=== PATIENT | male | born 1955 | race Caucasian/White ===

== ENCOUNTER 2016-07-17 07:26 | Outpatient (CLI) | payer BC ==
[~2016-07-17] VITALS: Ht 180.3 cm; Wt 143.2 kg
--- NOTE | ~2016-07-17 | OP ---
PATIENT NAME: STEPH TERRELL MEDICAL RECORD: [id number] :57 LOCATION:D.CAT ADMISSION DATE: SURGEON: AMARILIS ROJAS MD DATE OF OPERATION: 07/17/2016 PROCEDURES: 1. PTCA stent LAD. 2. Left heart catheterization. 3. Selective coronary angiography. 4. Intravascular ultrasound. 5. Left ventriculogram. INDICATIONS: Angina and coronary artery disease. PROCEDURE IN DETAIL: After informed consent was obtained and after a detailed explanation of risks, benefits as well as alternative therapies, the patient elected to proceed with angiogram and angioplasty. The right radial area was prepped and draped in normal sterile fashion. The right radial artery was cannulated via modified Seldinger technique with placement of 6-Cameroonian sheath. All catheters exchanged through this sheath. FINDINGS: Left ventriculogram was performed in standard 30-degree SCHULTE view, reveals good cardiac wall motion throughout all segments. Overall ejection fraction is 60%. SELECTIVE CORONARY ANGIOGRAPHY: 1. Left main is with no significant angiographic disease. 2. Left anterior descending has greater than 80% stenosis proximally confirmed by intravascular ultrasound. 3. Left circumflex has mild irregularities, but no flow-limiting stenosis. 4. Right coronary has significant disease proximally as well as 80+ percent stenosis of the PDA. PTCA STENT OF THE LAD: The stent used was a 3.0 x 30 mm Integrity. Result was 0% residual stenosis. OVERALL IMPRESSION: Successful percutaneous transluminal coronary angioplasty stent of the left anterior descending going from 80% initial stenosis to 0% residual. PLAN: PTCA stent of the RCA in the near future. TRANSINT:[id number] Voice Confirmation ID: [id number] DOCUMENT ID: [id number] AMARILIS ROJAS MD CC: [id number] DICTATION DATE: 07/17/16 1031 CASUALTY INSURANCE CLAIM ADJUSTER: 07/17/16 1508 DEP CLI 07/17/16 [place] [id number]
--- NOTE | ~2016-07-17 | HEMODYNAMI ---
PATIENT:STEPH TERRELL MEDICAL RECORD: [id number] : 57 LOCATION:D.CAT ADMISSION DATE: 07/17/16 Generatedon:07/17/201610:31 Patient name: STEPH TERRELL Patient #: [id number] : 1955 Date of study: 07/17/2016 Page: Of Hemodynamic Procedure Report Patient Data Patient Demographics Procedure consent was obtained First Name: STEPH Gender: Male Last Name: NIDHI : 1955 [facility] Initial: NAE Age: 61 year(s) Patient #: [id number] Race: SSN: [id number] Additional ID: [id number] Contact details Address: [address] [place] [address] [address] State: [place] City: [place] Zip code: [address] Past Medical History Allergies Allergen Reaction Date Comments Reported Other allergy 07/17/2016 Lipitor Admission Admission Data Admission Date: 07/17/2016 Admission Time: 7:26 Arrival Date: 07/17/2016 Arrival Time: 9:30 Admit Source: Other Insurance Payor: Private health insurance Height (in.): 71 BSA: 2.59 (m2) Height (cm.): 180.34 BMI: 45.05 (kg/m2) Weight (lbs.): 323 Weight (kg.): 146.51 Lab Results Lab Result Date: 07/17/2016 Lab Result Time: 0:00 Biochemistry Name Units Result Min Max BUN mg/dl 24 --(----)-* 7 18 Creatinine mg/dl 1.5 --(----)-* 0.6 1.3 CBC Name Units Result Min Max Hemoglobin g/dl 14.1 --(*---)-- 13.5 17.5 Procedure Procedure Types Cath Procedure Diagnostic Procedure LHC LH w/Coronaries PCI Procedure Coronary Stent Initial Miscellaneous Procedures Moderate Sedation up to 30 minutes Procedure Description Procedure Date Procedure Date: 07/17/2016 Procedure Start Time: 10:11 Procedure End Time: 10:29 Procedure Staff Name Function Frank Ralph MD Performing Physician Nhung Alanis RT Scrub Alisha Reilly RN Nurse Radha Chaparro RT Monitor Procedure Data Cath Procedure Fluoroscopy Diagnostic fluoroscopy Total fluoroscopy Time: 5.6 time: 5.6 min min Diagnostic fluoroscopy Total fluoroscopy dose: dose: 1341 mGy 1341 mGy Contrast Material Contrast Material Type Amount (ml) Isovue 370 95 Entry Location Entry Primary Successful Side Size Upsize Upsize Entry Closure [place] ccessful Closure Location (Fr) 1 (Fr) 2 (Fr) Remarks Device Remarks Radial Right 6 Fr Mechanical artery Short Compression Estimated blood loss: 5 ml Diagnostic catheters Device Type Used For End Catheter Placement Terumo Optitorque 5Fr Multi-vessel [place] 4.5 catheter Angiography Procedure Complications No complications Procedure Medications Medication Administration Route Dosage Oxygen NC 2 l/min Lidocaine 2% added to field 20 Heparin Flush Bag added to field 2 bags (1000units/500ml NS) 0.9% NaCl I.V. 100 ml/hr Benadryl I.V. 50 mg Radial Cocktail added to field 1 syringe (Verapomil 2mg/Nitro 400mcg/Heparin 1500units) Versed I.V. 1 mg Fentanyl I.V. 50 mcg Versed I.V. 1 mg Fentanyl I.V. 50 mcg Radial Cocktail I.A. 1 syringe (Verapomil 2mg/Nitro 400mcg/Heparin 1500units) Versed I.V. 1 mg Fentanyl I.V. 50 mcg Heparin Bolus I.V. 4000 units Integrilin (Bolus I.V. 11.3 ml 2mg/ml) Plavix P.O. 600 mg Hemodynamics Rest BSA: 2.59 (m2) HGB: 14.1 (g/dl) O2 Consumption: Estimated: 283.48 (ml/min) O2 Co nsumption indexed: Estimated:109.45 (ml/min/m) Heart Rate: 49 (bpm) Pressure Samples Time Site Value (mmHg) Purpose Heart Use Rate(bpm) 10:14 LV 62/1,2 Snapshot 63 Snapshots Pre Cath Intra NCS Post Cath Vital Signs Time Heart Resp SPO2 etCO2 FO2jpbl NIBP (mmHg) Rhythm Pain Sedation Rate (ipm) (%) (mmHg) (mmHg) Status Level (bpm) 9:53:44 48 15 100 0 0 Measuring NSR 0 (11) 10(A) , No pain 9:54:02 49 16 100 0 0 173/79(161) NSR 0 (11) 10(A) , No pain 9:58:18 48 19 100 0 0 157/84(134) NSR 0 (11) 10(A) , No pain 10:03:17 50 17 97 0 0 Measuring NSR 0 (11) 10(A) , No pain 10:03:35 50 16 98 0 0 144/76(113) NSR 0 (11) 10(A) , No pain 10:07:52 52 19 94 0 0 130/75(95) NSR 0 (11) 10(A) , No pain 10:12:06 48 18 95 0 0 108/64(102) NSR 0 (11) 10(A) , No pain 10:16:19 55 16 95 0 0 102/61(85) NSR 0 (11) 9(A) , No pain 10:20:32 53 16 95 0 0 108/55(77) NSR 0 (11) 9(A) , No pain 10:24:45 55 16 96 0 0 109/58(79) NSR 0 (11) 9(A) , No pain 10:28:57 53 17 96 0 0 114/67(95) NSR 0 (11) 10(A) , No pain Medications Time Medication Route Dose Verified Delivered Reason Note s Effectiveness by by 9:57:48 Oxygen NC 2 l/min Frank Buffie used for Loree Reilly RN procedure 9:57:59 Lidocaine 2% added 20ml Frank Marie for local to vial Loree Ralph MD anesthetic field 9:58:04 Heparin Flush added 2 bags Frank Marie used for Bag to Loree Ralph MD procedure (1000units/500ml field NS) 9:58:18 0.9% NaCl I.V. 100 Frankgreg Brito Per physician ml/hr Loree Reilly RN 9:58:33 Benadryl I.V. 50 mg Frank Brito Per physician Loree Reilly RN 10:07:55 Radial Cocktail added 1 Frank Marie (Verapomil to syringe Loree Ralph MD 2mg/Nitro field 400mcg/Heparin 1500units) 10:10:01 Versed I.V. 1 mg Frank Brito for sedation Loree Reilly RN 10:10:07 Fentanyl I.V. 50 mcg Frank Brito for sedation Loree Reilly RN 10:13:33 Versed I.V. 1 mg Frank Brito for sedation Loree Reilly RN 10:13:37 Fentanyl I.V. 50 mcg Frank Brito for sedation Loree Reilly RN 10:13:48 Radial Cocktail I.A. 1 Frank Marie for (Verapomil syringe Loree Ralph MD vasodilation 2mg/Nitro 400mcg/Heparin 1500units) 10:17:49 Versed I.V. 1 mg Frank Marie for sedation Loree Ralph MD 10:17:54 Fentanyl I.V. 50 mcg Frank Marie for sedation Loree Ralph MD 10:20:03 Heparin Bolus I.V. 4000 Frank Brito for veri fied units Loree Reilly RN anticoagulation with dr ralph 10:22:03 Integrilin I.V. 11.3 ml Frank Brito for wast ed (Bolus 2mg/ml) Loree Reilly RN antiplatelet 8.7 ml therapy of vial 10:30:21 Plavix P.O. 600 mg Frank Brito for Loree Reilly RN antiplatelet therapy Procedure Log Time Note 9:35:23 Informed consent obtained and on chart 9:37:18 Admit Source: Other 9:37:26 Arrival Date: 07/17/2016 9:30:00 AM 9:37:32 Insurance Payor : Private health insurance 9:37:43 Patient Height : 71 cm 9:37:47 Patient Weight : 323 kg 9:40:12 Lab Result : Creatinine 1.5 mg/dl 9:40:12 Lab Result : BUN 24 mg/dl 9:40:12 Lab Result : Hemoglobin 14.1 g/dl 9:40:25 Diagnostic Cath Status : Elective 9:40:55 Alisha Reilly RN sent for patient. Start room use. 9:40:56 Time tracking: Regular hours 9:41:01 Plan of Care:Hemodynamics will remain stable., Cardiac rhythm will remain stable., Comfort level will be maintained., Respiratory function will remain adequate., Patient/ family verbilizes understanding of procedure., Procedure tolerated without complication., Recovers from procedure without complications.. 9:44:41 Patient received from Pre/Post Procedure Room to CCL 1 Alert and oriented. Tansferred to table in Supine position. 9:44:42 Warm blankets applied, and leni hugger turned on for patient comfort. 9:44:42 Correct patient and procedure confirmed by team. 9:44:43 ECG and BP/O2 sat monitors applied to patient. 9:51:54 Vital chart was started 9:51:55 Baseline sample Acquired. 9:51:57 Full Disclosure recording started 9:52:12 H&P Date Dictated: 07/01/2016 Within 30 days and on chart., H&P Addendum completed by physician on day of procedure. (MUST COMPLETE FOR ALL OUTPATIENTS). 9:52:14 Pre-procedure instructions explained to patient. 9:52:16 Family in waiting room. 9:52:18 Patient NPO since Midnight. 9:52:39 Patient allergic to Other allergyLipitor 9:52:43 Is patient on blood thinner?No 9:52:47 Patient diabetic? No. 9:52:51 Snore? Yes 9:52:52 Sleep apnea? No 9:53:22 Patient pain scale 0/10 ?. 9:53:27 IV patent on arrival in left hand with 0.9% NaCl at KVO. 9:53:38 Lab results completed and on chart. 9:53:44 Right Radial & Right Groin area was prepped with chlora-prep and draped in sterile fashion 9:53:45 Alarms reviewed by R. N. 9:53:46 Sharps counted by scrub and verified by R.N. 9:53:47 Physician paged 9:57:48 Oxygen 2 l/min NC was administered by Alisha Reilly RN; used for procedure; 9:57:59 Lidocaine 2% 20ml vial added to field was administered by Frank Ralph MD; for local anesthetic; 9:58:04 Heparin Flush Bag (1000units/500ml NS) 2 bags added to field was administered by Frank Ralph MD; used for procedure; 9:58:18 0.9% NaCl 100 ml/hr I.V. was administered by Alisha Reilly RN; Per physician; 9:58:33 Benadryl 50 mg I.V. was administered by Alisha Reilly RN; Per physician; 10:07:55 Radial Cocktail (Verapomil 2mg/Nitro 400mcg/Heparin 1500units) 1 syringe added to field was administered by Frank Ralph MD; ; 10:08:57 Physician arrived 10::58 --------ALL STOP TIME OUT------ 10:08:58 Final Timeout: patient, procedure, and site verified with staff and physician. All members of the team are in agreement. 10:09:02 Right Radial & Right Groin site verified by team. 10:09:05 Physical assessment completed. ASA score P 2 - A patient with mild systemic disease as per Frank Ralph MD. 10:09:09 Sedation plan: IV Moderate Sedation Versed, Fentanyl 10::17 Use device set Radial Dx 10::18 Acist Syringe opened to sterile field. 10:09:19 Medline Cath Pack opened to sterile field. 10:09:19 Bag Decanter opened to sterile field. 10:09:19 Terumo 6Fr Slender Glidesheath opened to sterile field. 10:09:20 St Sincere 260cm J .035 wire opened to sterile field. 10:09:20 Acist Hand Control opened to sterile field. 10:09:21 Acist Manifold opened to sterile field. 10:09:21 Tegaderm 4 x 4 opened to sterile field. 10:09:21 MBrace Wrist Support opened to sterile field. 10:10:01 Versed 1 mg I.V. was administered by Alisha Reilly RN; for sedation; 10:10:07 Fentanyl 50 mcg I.V. was administered by Alisha Reilly RN; for sedation; 10:10:13 Procedure started. 10:11:54 Local anesthetic to right radial artery with Lidocaine 2% by Frank Ralph MD.INITIAL ACCESS ONLY 10:12:07 A 6 Fr Short sheath was inserted into the Right Radial artery 10:13:30 A Terumo Optitorque 5Fr [place] 4.5 catheter was advanced over the wire and used for Multi-vessel Angiography. 10:13:33 Versed 1 mg I.V. was administered by Alisha Reilly RN; for sedation; 10:13:37 Fentanyl 50 mcg I.V. was administered by Alisha Reilly RN; for sedation; 10:13:48 Radial Cocktail (Verapomil 2mg/Nitro 400mcg/Heparin 1500units) 1 syringe I.A. was administered by Frank Ralph MD; for vasodilation; 10:14:56 LV hemodynamics recorded. 10:14:58 LV gram done using SCHULTE 10:15:00 Injector settings: Ml/sec: 5, Volume: 15, 10:15:15 EF : 60 % 10:15:19 RCA angiography performed. 10:15:22 Injector settings: Ml/sec: 3, Volume: 6, 10:16:20 Merit BasixCompak Inflation Kit opened to sterile field. 10:16:20 Munson Whisper J 300cm 0.014 guide wire opened to sterile field. 10:17:49 Versed 1 mg I.V. was administered by Frank Ralph MD; for sedation; 10:17:54 Fentanyl 50 mcg I.V. was administered by Frank Ralph MD; for sedation; 10:18:02 Catheter removed. 10:18:04 Cordis 6FR XB 3.5 guide catheter opened to sterile field. 10:18:58 LCA angiography performed. 10:19:05 Injector settings: Ml/sec: 3, Volume: 6, 10:20:03 Heparin Bolus 4000 units I.V. was administered by Alisha Reilly RN; for anticoagulation; verified with dr ralph 10:20:21 Catheter removed. 10:20:54 Proceeding to intervention. 10:21:00 6 Fr xb 3.5 guide catheter was inserted over the wire 10:21:04 whisper wire advanced. 10:21:07 Wire advanced across lesion. 10:21:17 [place] IVUS Catheter opened to sterile field. 10:21:20 IVUS catheter advanced over wire. 10:22:03 Integrilin (Bolus 2mg/ml) 11.3 ml I.V. was administered by Alisha Reilly RN; for antiplatelet therapy; wasted 8.7 ml of vial 10:23:51 IVUS pass to LAD lesion performed. 10:23:55 IVUS catheter removed over wire. 10:24:52 Inflation Number: 1 A Medtronic Integrity 3.0 X 30 stent was prepped and advanced across the Prox LAD. The stent was deployed at 17 KARLA for 0:10 (min:sec). 10:26:17 Stent catheter was removed intact over wire. 10:26:17 Wire removed. 10:26:19 Guide catheter removed. 10:26:30 Terumo TR Band Large opened to sterile field. 10::43 Sheath removed intact; hemostasis achieved with Mechanical Compression to the Right Radial artery. 10::45 Procedure ended.(Physican Out) 10::27 Fluoroscopy time 05.60 minutes. 10::33 Flurop Dose total: 1341 10::33 Fluoroscopy dose: 1341 mGy 10::38 Contrast amount:Isovue 370 95ml. 10::42 Sharps counted by scrub and verified by R.N. 10::46 TR band inflated with 10cc of air. 10:27:48 Insertion/operative site no bleeding no hematoma. 10::53 Post right radial artery:stable 10::55 Post Procedure Pulses reassessed and unchanged 10::02 Post procedure rhythm: unchanged. 10:28:04 Estimated blood loss: 5 ml 10::06 Post procedure instruction explained to patient.Patient verbalizes understanding. 10:28:07 Patient needs reinforcement of post procedure teaching. 10:29:29 Procedure type changed to Cath procedure, Diagnostic procedure, LHC, LHC w/Coronaries, PCI procedure, Coronary Stent Initial, Miscellaneous Procedures, Moderate Sedation up to 30 minutes 10::30 Procedure and supply charges have been captured, reviewed, submitted and are correct. 10:29:35 Procedure Complication : No complications 10::37 Vital chart was stopped 10::40 Report given to Pre/Post Procedure Room. 10::43 Patient transfered to Pre/Post Procedure Room with Stretcher. 10::45 Procedure ended. 10:29:45 Full Disclosure recording stopped 10::52 ACC-PCI Only Patient was given prescriptions, or instructed by Frank Ralph MD to start/continue the following medications upon discharge: Plavix 10::55 End room use (Document Last) 10:30:21 Plavix 600 mg P.O. was administered by Alisha Reilly RN; for antiplatelet therapy; Intervention Summary Intervention Notes Time ActionType Lesion and Equipment Action# Pressure Duration Attributes Used 10:24:52 Place stent Prox LAD Medtronic 1 17 00:10 Integrity 3.0 X 30 stent Device Usage Item Name Manufacture Quantity Catalog Hospital Part Current Minimal Lot# / Number Charge Number Stock Stock Serial# Code [facility] 1 06425 [id number] 247720 [id number] 20 Syringe Medical Systems Inc Medline Cardinal 1 [id number] 44857 098599 5 Cath Pack Health Bag Microtek 1 2002S 459893 94311 168918 5 Decanter Medical Inc. Terumo 6Fr Terumo 1 [id number] 430568 754896 893666 [address] Sincere St Sincere 1 063499 396539 869699 409855 30 260cm J .035 wire Acist Hand Acist 1 61682 003938 479310 449097 5 Control Medical Systems Inc Acist Acist 1 24081 025047 351033 953809 5 Manifold Medical Systems Inc Tegaderm 4 3M 1 1626W 869575 969368 631018 5 x 4 MBrace Advanced 1 140-0250-00 433135 77113 960005 5 Wrist Vascular Support Dynamics Terumo Terumo 1 40-4937 531731 049762 830505 5 Optitorque 5Fr [place] 4.5 catheter Merit Merit 1 [id number] 014778 927853 013981 15 BasixCompak Medical Inflation Kit Munson Munson 1 [id number] 186196 375821 567959 5 Whisper J Vascular 300cm 0.014 guide wire Cordis 6FR Cardinal 1 [id number] 506630 981614 582115 2 XB 3.5 Health guide catheter [place] 1 [id number] 050433 055309 515919 8 [place] IVUS Catheter Medtronic Medtronic 1 [id number] 073000 9 [id number] Integrity 3.0 X 30 stent Terumo TR Terumo 1 [id number] 453467 401787 603575 40 Band Large Signature Audit [place] Stage Time Signature Unsigned Intra-Procedure 07/17/2016 Radha Chaparro 10:31:45 AM RT(R) Signatures Monitor : Radha Chaparro RT Signature : Date : Time : [facility] [address] [place] [address]
[~2016-07-17 07:26] MED LIST: ASPIRIN325 MG PO; COREG25 MG PO; MAGNESIUM GLUC500 M1 PO; NORVASC10 MG PO; ZESTRIL20 MG PO
[2016-07-17 07:51] VITALS: BP 168/74; Ht 180.3 cm; Wt 143.2 kg
[2016-07-17 07:57] LABS: BASOPHILS 0.3 % (0-2); EOSINOPHILS 3.6 % (0-7); HEMATOCRIT 43.3 % (42.0-54.0); HEMOGLOBIN 14.1 g/dL (13.5-17.5); IMMATURE GRANULOCYTES 0.5 % (0-5); LYMPHOCYTES 31.4 % (15-50); MCH 29.4 pg (26.0-34.0); MCHC 32.6 g/dL (31.0-37.0); MCV 90.4 fL (80.0-100.0); MONOCYTES 7.7 % (2-11); NEUTROPHILS 56.5 % (40-80); PLATELET COUNT 180 10x3/uL (130-400); RBC 4.79 10x6/uL (4.20-6.10); RDW 13.6 % (11.5-14.5); WBC 6.1 10x3/uL (4.8-10.8)
[2016-07-17] MEDS ORDERED: HYZAAR 100-25 T1 TAB PO (07:58)
[2016-07-17 08:10] LABS: ANION GAP 10.6 mmol/L (8-16); CALCIUM 8.7 mg/dL (8.5-10.1); CARBON DIOXIDE 26.7 mmol/L (21.0-32.0); CREATININE - SERUM 1.5 mg/dL (0.6-1.3); POTASSIUM - SERUM 4.3 mmol/L (3.5-5.1)
[2016-07-17] MEDS ORDERED: BAYER CHEWABLE81 MG PO (10:50)
[2016-07-17] MEDS ORDERED: PLAVIX75 MG PO (10:50)
--- NOTE | 2016-07-17 11:00 | NUR ---
1100 PT DENIES ANY C/O CHEST PAIN, VSS, NORMAL SINUS RHYTHM ON MONITOR. TR BAND CDI TO RIGHT WRIST, AREA IS FREE FROM BLEEDING OR HEMATOMA. AT BEDSIDE. PO FLUIDS SERVED.
--- NOTE | 2016-07-17 11:30 | NUR ---
1130 PT DENIES ANY C/O. VSS, RR EVEN AND UNLABORED. ИРИНА PO FLUIDS, DECLINES SANDWICH AT THIS TIME. TR BAND CDI WITH NO BLEEDING OR HEMATOMA NOTED. AT BEDSIDE, CALL LIGHT IN REACH.
--- NOTE | 2016-07-17 12:14 | NUR ---
1200 PT DENIES ANY C/O. TR BAND CDI, NO BLEEDING OR HEMATOMA NOTED. ИРИНА PO FLUIDS. VSS.
--- NOTE | 2016-07-17 13:34 | NUR ---
1330 AMBULATED TO BATHROOM TO VOID. ALL VITALS WNL. RWRIST TR BAND REMAINS C/D/I WITH NO HEMATOMA OR BLEEDING. AT BEDSIDE. DENIES NEEDS AT THIS TIME.
--- NOTE | 2016-07-17 14:21 | NUR ---
3CC AIR REMOVED FROM R WRIST TR BAND. WILL MONITOR CLOSELY FOR BLEEDING OR HEMATOMA. UP TO BEDSIDE TO DRESS.
--- NOTE | 2016-07-17 14:42 | NUR ---
REMAINDER OF AIR REMOVED FROM R WRIST TR BAND. TEGADERM AND COTTON BALL APPLIED. BRACE REMAINS IN PLACE ON DISCHARGE. D/C INSTRUCTIONS DISCUSSED WITH PATIENT AND AT BEDSIDE. INSTRUCTIONS FOR PATIENT RETURN DISCUSSED. PATIENT TO RETURN WEDNESDAY AT 7[address] FOR PCI RCA WITH DR. ROJAS. WHEELED OUT VIA WHEELCHAIR BY CATH TEAM.
== END 2016-07-17 14:45 | disposition home or self-care (01) ==
LOC: D.CATH 07:26
PROVIDERS: Internal Medicine Interventional Cardiology
DX: I25.119 Atherosclerotic heart disease of native coronary artery with unspecified angina pectoris (principal)

== ENCOUNTER 2016-07-20 07:16 | Outpatient (CLI) | payer BC ==
[~2016-07-20] VITALS: Ht 180.3 cm; Wt 143.2 kg
--- NOTE | ~2016-07-20 | HEMODYNAMI ---
PATIENT:STEPH TERRELL MEDICAL RECORD: [id number] : 57 LOCATION:D.CAT ADMISSION DATE: 07/20/16 Generatedon:07/20/20169:31 Patient name: STEPH TERRELL Patient #: [id number] : 1955 Date of study: 07/20/2016 Page: Of Hemodynamic Procedure Report Patient Data Patient Demographics Procedure consent was obtained First Name: STEPH Gender: Male Last Name: NIDHI : 1955 [facility] Initial: ETHAN Age: 61 year(s) Patient #: [id number] Race: SSN: [id number] Additional ID: [id number] Contact details Address: [address] [place] [address] [address] State: [place] City: [place] Zip code: [address] Past Medical History Allergies Allergen Reaction Date Comments Reported Other allergy 07/17/2016 Lipitor Other [facility] Admission Admission Data Admission Date: 07/20/2016 Admission Time: 7:16 Lab Results Lab Result Date: 07/20/2016 Lab Result Time: 6:40 Biochemistry Name Units Result Min Max BUN mg/dl 29 --(----)-* 7 18 Creatinine mg/dl 1.5 --(----)-* 0.6 1.3 CBC Name Units Result Min Max Hematocrit % 44.7 --(*---)-- 42 54 Hemoglobin g/dl 14.5 --(*---)-- 13.5 17.5 Procedure Procedure Types Cath Procedure Diagnostic Procedure LHC PCI Procedure Coronary Stent Initial Coronary Stent Additional Miscellaneous Procedures Moderate Sedation up to 15 minutes Procedure Description Procedure Date Procedure Date: 07/20/2016 Procedure Start Time: 9:10 Procedure End Time: 9:25 Procedure Staff Name Function Frank Ralph MD Performing Physician Crispin Valladares RT Scrub Silvia Richey RN Nurse Tanvir Elias RT Monitor Procedure Data Cath Procedure Fluoroscopy Diagnostic fluoroscopy Total fluoroscopy Time: 4.3 time: 4.3 min min Diagnostic fluoroscopy Total fluoroscopy dose: 517 dose: 517 mGy mGy Contrast Material Contrast Material Type Amount (ml) Isovue 300 91 Entry Location Entry Primary Successful Side Size Upsize Upsize Entry Closure [place] ccessful Closure Location (Fr) 1 (Fr) 2 (Fr) Remarks Device Remarks Radial Right 6 Fr Mechanical artery Short Compression Procedure Complications No complications Procedure Medications Medication Administration Route Dosage Oxygen NC 2 l/min Heparin Flush Bag added to field 2 bags (1000units/500ml NS) Lidocaine 2% added to field 20 Radial Cocktail added to field 1 syringe (Verapomil 2mg/Nitro 400mcg/Heparin 1500units) Heparin Bolus I.V. 4000 units Radial Cocktail I.A. 1 syringe (Verapomil 2mg/Nitro 400mcg/Heparin 1500units) Versed I.V. 1 mg Fentanyl I.V. 50 mcg Versed I.V. 1 mg Fentanyl I.V. 50 mcg Fentanyl I.V. 50 mcg 0.9% NaCl I.V. bolus 250 ml Hemodynamics Rest HGB: 14.5 (g/dl) Heart Rate: 56 (bpm) Snapshots Pre Cath Intra NCS Post Cath Vital Signs Time Heart Resp SPO2 etCO2 [id number] NIBP (mmHg) Rhythm Pain Sedation Rate (ipm) (%) (mmHg) (mmHg) Status Level (bpm) 8:55:57 49 16 99 0 0 157/69(135) NSR 0 (11) 10(A) , No pain 9:00:21 52 12 99 0 0 153/73(125) NSR 0 (11) 10(A) , No pain 9:04:51 53 12 99 0 0 145/70(130) NSR 0 (11) 10(A) , No pain 9:09:07 55 13 98 0 0 124/57(96) NSR 0 (11) 10(A) , No pain 9:13:21 57 16 97 0 0 91/51(78) NSR 0 (11) 9(A) , No pain 9:17:37 65 17 95 0 0 69/44(60) NSR 0 (11) 9(A) , No pain 9:21:39 64 16 95 0 0 82/57(75) NSR 0 (11) 9(A) , No pain 9:24:17 59 16 95 0 0 99/58(91) NSR 0 (11) 9(A) , No pain Medications Time Medication Route Dose Verified Delivered Reason Notes Effectiveness by by 9:05:33 Oxygen NC 2 l/min Frank Silvia Per physician Loree Richey RN 9:05:41 Heparin Flush added 2 bags Frank Marie used for Bag to Loree Ralph MD procedure (1000units/500ml field NS) 9:05:49 Lidocaine 2% added 20ml Frank Marie used for to vial Loree Ralph MD procedure field 9:05:55 Radial Cocktail added 1 Frank Marie used for (Verapomil to syringe Loree Ralph MD procedure 2mg/Nitro field 400mcg/Heparin 1500units) 9:09:43 Versed I.V. 1 mg Frank Silvia for sedation Loree Richey RN 9:09:53 Fentanyl I.V. 50 mcg Frank Silvia for sedation Loree Richey RN 9:10:45 Radial Cocktail I.A. 1 Frank Frank for (Verapomil syringe Loree Ralph MD vasodilation 2mg/Nitro 400mcg/Heparin 1500units) 9:11:08 Versed I.V. 1 mg Frank Silvia for sedation Loree Richey RN 9:11:16 Fentanyl I.V. 50 mcg Frank Silvia for sedation Loree Richey RN 9:11:51 Heparin Bolus I.V. 4000 Frank Silvia for dose units Loree Richey RN anticoagulation verified wt dr ralph 9:13:21 Fentanyl I.V. 50 mcg Frank Silvia for sedation Loree Richey RN 9:17:45 0.9% NaCl I.V. 250 ml Frank Silvia Per physician dr roldan Richey RN informed of BP Procedure Log Time Note 8:33:36 Informed consent obtained and on chart 8:34:02 Diagnostic Cath status Elective 8:34:04 Silvia Richey RN sent for patient. Start room use. 8:34:06 Time tracking: Regular hours 8:34:10 Plan of Care:Hemodynamics will remain stable., Cardiac rhythm will remain stable., Comfort level will be maintained., Respiratory function will remain adequate., Patient/ family verbilizes understanding of procedure., Procedure tolerated without complication., Recovers from procedure without complications.. 8:37:10 Lab Result : Hemoglobin 14.5 g/dl 8:37:10 Lab Result : Creatinine 1.5 mg/dl 8:37:10 Lab Result : BUN 29 mg/dl 8:37:10 Lab Result : Hematocrit 44.7 % 8:37:20 Lab results completed and on chart. 8:50:47 Patient received from Pre/Post Procedure Room to CCL 1 Alert and oriented. Tansferred to table in Supine position. 8:50:49 Warm blankets applied, and leni hugger turned on for patient comfort. 8:50:50 Correct patient and procedure confirmed by team. 8:50:50 ECG and BP/O2 sat monitors applied to patient. 8:54:33 Vital chart was started 9:03:17 Baseline sample Acquired. 9:03:20 Rhythm: sinus rhythm 9:04:05 H&P Date Dictated: 07/01/2016 Within 30 days and on chart., H&P Addendum completed by physician on day of procedure. (MUST COMPLETE FOR ALL OUTPATIENTS). 9:04:06 Pre-procedure instructions explained to patient. 9:04:06 Pre-op teaching completed and patient verbalized understanding. 9:04:08 Family in waiting room. 9:04:09 Patient NPO since Midnight. 9:05:23 Patient allergic to Other allergyatovvastatin 9:05:26 Is the patient allergic to Iodine/contrast media? No. 9:05:33 Oxygen 2 l/min NC was administered by Silvia Richey RN; Per physician; 9:05:41 Heparin Flush Bag (1000units/500ml NS) 2 bags added to field was administered by Frank Ralph MD; used for procedure; 9:05:43 Is patient on blood thinner?Yes 9:05:46 ACC The patient was administered the following blood thiners within the last 24 hours: ACCPlavix 9:05:48 Patient diabetic? No. 9:05:49 Lidocaine 2% 20ml vial added to field was administered by Frank Ralph MD; used for procedure; 9:05:50 ----Pre-sedation anethsthesia assessment.---- 9:05:52 Previous problem with sedation/anesthesia? No ? 9:05:54 Snore? Yes 9:05:55 Radial Cocktail (Verapomil 2mg/Nitro 400mcg/Heparin 1500units) 1 syringe added to field was administered by Frank Ralph MD; used for procedure; 9:05:55 Sleep apnea? No 9:05:57 Deviated septum? No 9:05:58 Opens mouth fully? Yes 9:06:00 Sticks out tongue? Yes 9:06:02 Airway obstruction? No ? 9:06:04 Dentures? No ? 9:06:11 Pre procedure: right dorsailis pedis pulse 1+ Palpable, but thready & weak; easily obliterated 9:09:12 Modified Ethan's test Ulnar > 7 seconds. 9:09:15 Patient pain scale 0/10 ?. 9:09:19 IV patent on arrival in left antecubital with 0.9% NaCl at 10ml/hr. 9:09:24 Right Radial & Right Groin area was prepped with chlora-prep and draped in sterile fashion 9:09:25 Alarms reviewed by R. N. 9:09:26 Sharps counted by scrub and verified by R.N. 9:09:27 --------ALL STOP TIME OUT------ 9:09:27 Final Timeout: patient, procedure, and site verified with staff and physician. All members of the team are in agreement. 9:09:29 Right Radial & Right Groin site verified by team. 9:09:33 Physical assessment completed. ASA score P 2 - A patient with mild systemic disease as per Frank Ralph MD. 9:09:36 Sedation plan: IV Moderate Sedation Versed, Fentanyl 9:09:43 Versed 1 mg I.V. was administered by Silvia Richey RN; for sedation; 9:09:45 Use device set Radial PCI 9:09:46 Acist Syringe opened to sterile field. 9:09:46 Acist Hand Control opened to sterile field. 9:09:47 Bag Decanter opened to sterile field. 9:09:47 Medline Cath Pack opened to sterile field. 9:09:47 Merit BasixCompak Inflation Kit opened to sterile field. 9:09:48 Terumo 6Fr Slender Glidesheath opened to sterile field. 9:09:48 Acist Manifold opened to sterile field. 9:09:48 Tegaderm 4 x 4 opened to sterile field. 9:09:49 MBrace Wrist Support opened to sterile field. 9:09:49 St Sincere 260cm J .035 wire opened to sterile field. 9:09:53 Fentanyl 50 mcg I.V. was administered by Silvia Richey RN; for sedation; 9:10:00 Munson Whisper J 300cm 0.014 guide wire opened to sterile field. 9:10:01 Medtronic Launcher 6Fr AR 2.0 guide catheter opened to sterile field. 9:10:04 Procedure started. 9::04 Full Disclosure recording started 9:10:22 Local anesthetic to right radial artery with Lidocaine 2% by Frank Ralph MD.INITIAL ACCESS ONLY 9:10:29 A 6 Fr Short sheath was inserted into the Right Radial artery 9:10:38 6 Fr AR 2 guide catheter was inserted over the wire 9:10:45 Radial Cocktail (Verapomil 2mg/Nitro 400mcg/Heparin 1500units) 1 syringe I.A. was administered by Frank Ralph MD; for vasodilation; 9:11:08 Versed 1 mg I.V. was administered by Silvia Richey RN; for sedation; 9:11:16 Fentanyl 50 mcg I.V. was administered by Silvia Richey RN; for sedation; 9:11:43 Zero performed for pressure channel P1 9:11:51 Heparin Bolus 4000 units I.V. was administered by Silvia Richey RN; for anticoagulation; dose verified wtih dr ralph 9:12:57 WHISPER wire advanced. 9:13:21 Fentanyl 50 mcg I.V. was administered by Silvia Richey RN; for sedation; 9:15:00 Inflation Number: 1 A Medtronic Resolute 2.5 X 30 stent was prepped and advanced across the R PDA. The stent was deployed at 11 KARLA for 0:11 (min:sec). 9:16:08 Stent catheter was removed intact over wire. 9:17:45 0.9% NaCl 250 ml I.V. bolus was administered by Silvia Richey RN; Per physician; informed of BP 9:17:57 Inflation Number: 1 A Medtronic Resolute 3.5 X 18 stent was prepped and advanced across the Prox RCA. The stent was deployed at 13 KARLA for 0:10 (min:sec). 9:18:03 Stent catheter was removed intact over wire. 9:19:53 Inflation Number: 1 A Medtronic Resolute 3.5 X 22 stent was prepped and advanced across the Mid RCA. The stent was deployed at 15 KARLA for 0:11 (min:sec). 9:19:56 Stent catheter was removed intact over wire. 9:19:57 Wire removed. 9:19:57 Guide catheter removed. 9:20:05 Contrast amount:Isovue 300 91ml. 9:20:12 Sheath removed intact; hemostasis achieved with Mechanical Compression to the Right Radial artery. 9:20:50 Procedure ended.(Physican Out) 9:21:08 Fluoroscopy time 04.30 minutes. 9:21:17 Flurop Dose total: 517 9:21:17 Fluoroscopy dose: 517 mGy 9:21:18 Sharps counted by scrub and verified by R.N. 9:21:20 TR band inflated with 10cc of air. 9:21:28 Terumo TR Band Standard opened to sterile field. 9:21:50 Procedure type changed to Cath procedure, Diagnostic procedure, LHC, PCI procedure, Coronary Stent Initial, Coronary Stent Additional, Miscellaneous Procedures, Moderate Sedation up to 15 minutes 9:24:36 Post right radial artery:stable 9:24:37 Post Procedure Pulses reassessed and unchanged 9:24:41 Post procedure rhythm: sinus rhythm 9:24:43 Procedure and supply charges have been captured, reviewed, submitted and are correct. 9:25:03 Procedure Complication : No complications 9:25:06 Vital chart was stopped 9:25:06 See physician's report for complete and final results. 9:25:09 Report given to Pre/Post Procedure Room. 9:25:13 Patient transfered to Pre/Post Procedure Room with Stretcher. 9:25:16 Procedure ended. 9:25:16 Full Disclosure recording stopped 9:25:20 End room use (Document Last) Intervention Summary Intervention Notes Time ActionType Lesion and Equipment Action# Pressure Duration Attributes Used 9:15:00 Place stent R PDA Medtronic 1 11 00:11 Resolute 2.5 X 30 stent 9:17:57 Place stent Prox RCA Medtronic 1 13 00:10 Resolute 3.5 X 18 stent 9:19:53 Place stent Mid RCA Medtronic 1 15 00:11 Resolute 3.5 X 22 stent Device Usage Item Name Manufacture Quantity Catalog Hospital Part Current Minimal Lot# / Number Charge Number Stock Stock Serial# Code Acist Acist 1 97814 153617 547880 [id number] 20 Syringe Medical Systems Inc Acist Hand Acist 1 48815 889231 894815 294476 5 Control Medical Systems Inc Bag Microtek 1 2002S 666299 32216 081327 5 DecStrangeloop Networks Medical Inc. Medline Cardinal 1 [id number] 322625 30042 598091 5 Guojia New Materials [facility] 1 [id number] 076693 036408 846000 15 CurbStand Medical Inflation Kit Terumo 6Fr Terumo 1 [id number] 766703 547934 605939 40 Slender Glidesheath Acist Acist 1 26655 999349 314009 249288 5 Manifold Medical Systems Inc Tegaderm 4 3M 1 [id number] 413892 122460 526343 5 x 4 MBrace Advanced 1 [id number] 609565 44724 669034 5 [address] V[address] Support Dynamics St Sincere St Sincere 1 096031 039617 435372 880809 30 260cm J .035 wire Munson Munson 1 [id number] 523459 081358 616548 5 Whisper J Vascular 300cm 0.014 guide wire Medtronic Medtronic 1 [id number] 604506 87968 909074 1 Launcher 6Fr AR 2.0 guide catheter Medtronic Medtronic 1 [id number] 094063 086510 1 [id number] Resolute 2.5 X 30 stent Medtronic Medtronic 1 [id number] 274604 932536 9 [id number] Resolute 3.5 X 18 stent Medtronic Medtronic 1 [id number] 370210 522526 6 [id number] Resolute 3.5 X 22 stent Terumo TR Terumo 1 [id number] 267867 075499 691821 40 Band Standard Signature Audit Aspen Stage Time Signature Unsigned Intra-Procedure 07/20/2016 Tanvir Elias 9:31:45 AM RT(R) Signatures Monitor : Tanvir Elias RT Signature : Date : Time : [place] [address] [place] [address]
[~2016-07-20 07:16] MED LIST changes: +BAYER CHEWABLE81 MG PO; +HYZAAR 100-25 T1 TAB PO; +PLAVIX75 MG PO
[2016-07-20 07:30] VITALS: BP 159/81; Ht 180.3 cm; Wt 143.2 kg
[2016-07-20 07:45] LABS: BASOPHILS 0.3 % (0-2); EOSINOPHILS 3.2 % (0-7); HEMATOCRIT 44.7 % (42.0-54.0); HEMOGLOBIN 14.5 g/dL (13.5-17.5); IMMATURE GRANULOCYTES 0.2 % (0-5); LYMPHOCYTES 26.5 % (15-50); MCH 29.5 pg (26.0-34.0); MCHC 32.4 g/dL (31.0-37.0); MEAN PLATELET VOLUME 10.1 fL (7.4-10.4); MONOCYTES 7.5 % (2-11); NEUTROPHILS 62.3 % (40-80); PLATELET COUNT 175 10x3/uL (130-400); RBC 4.91 10x6/uL (4.20-6.10); RDW 13.7 % (11.5-14.5); WBC 6.5 10x3/uL (4.8-10.8)
[2016-07-20 08:03] LABS: ANION GAP 11.6 mmol/L (8-16); CALCIUM 9.1 mg/dL (8.5-10.1); CREATININE - SERUM 1.5 mg/dL (0.6-1.3); POTASSIUM - SERUM 4.6 mmol/L (3.5-5.1)
--- NOTE | 2016-07-20 10:16 | NUR ---
0955 RESTING WITH EYES CLOSED. HOB ELEVATED. NO RESP DISTRESS, ROOM AIR. SB RATE 51 W NO C/O CHEST PAIN. PULSES PALP X 4. R WRIST TR BAND C/D/I WITH NO HEMATOMA OR BLEEDING. AT BEDSIDE. DENIES NEEDS AT THIS TIME.
--- NOTE | 2016-07-20 13:01 | NUR ---
1040 SLEEPING, ROOM AIR W NO RESP DISTRESS. SB RATE 53 WNO C/O CHEST PAIN. PULSES PALP X 4. R WRIST TR BAND C/D/I WITH NO HEMATOMA OR BLEEDING. 1140 TALKING WITH AT BEDSIDE. R WRIST TR BAND C/D/I W NO HEMATOMA OR BLEEDING. DENIES NEEDS AT THIS TIME. SIPPING WATER WITH NO NAUSEA. 1240 SITTING UP IN BED, ROOM AIR, VITALS WNL. 1304 3CC AIR REMOVED FROM R WRIST TR BAND. WILL MONITOR CLOSELY FOR BLEEDING.
--- NOTE | 2016-07-20 13:09 | NUR ---
AMBULATED TO BATHROOM TO VOID, R WRIST REMAINS C/D/I WITH NO HEMATOMA OR BLEEDING.
--- NOTE | 2016-07-21 18:08 | OP ---
PATIENT NAME: STEPH TERRELL MEDICAL RECORD: [id number] :57 LOCATION:D.CAT ADMISSION DATE: SURGEON: AMARILIS ROJAS MD DATE OF OPERATION: 07/20/2016 PROCEDURES: 1. PTCA stent RCA. 2. PTCA stent RCA PDA. 3. Selective coronary angiography. INDICATION: Angina and coronary artery disease. PROCEDURE: After informed consent was obtained and after detailed explanation of risks, benefits as well as alternative therapies, the patient elected to proceed with angiogram and angioplasty. The right radial area was prepped and draped in normal sterile fashion. Right radial artery was cannulated via modified Seldinger technique with placement of 6-Maldivian sheath. All catheters exchanged through this sheath. FINDINGS: There are multiple areas of stenosis in the RCA greater than 70% to 80%, PDA is 90%. PDA was addressed with a 2.5 x 30 mm Resolute, the RCA with a 3.5 x 22 and 3.5 x 18 mm Resolute. Result was 0% residual stenosis. OVERALL IMPRESSION: Successful percutaneous transluminal coronary angioplasty stent of the right coronary artery going from 90% initial stenosis to 0% residual. TRANSINT:[id number] Voice Confirmation ID: [id number] DOCUMENT ID: [id number] AMARILIS ROJAS MD at 1808 CC: [id number] DICTATION DATE: 07/20/16924 JOURNEYMAN POWERHOUSE OPERATOR: 07/20/16 1310 DEP CLI 07/20/16 [place] [id number]
== END 2016-07-20 13:31 | disposition home or self-care (01) ==
LOC: D.CATH 07:16
PROVIDERS: Internal Medicine Interventional Cardiology
DX: I25.10 Atherosclerotic heart disease of native coronary artery without angina pectoris (principal); Z01.812 Encounter for preprocedural laboratory examination

== ENCOUNTER 2017-05-26 07:39 | Outpatient (CLI) | payer BC ==
[~2017-05-26] VITALS: Ht 180.3 cm; Wt 138.6 kg
--- NOTE | ~2017-05-26 | OP ---
PATIENT NAME: STEPH TERRELL MEDICAL RECORD: [id number] :57 LOCATION:D.CAT ADMISSION DATE: SURGEON: AMARILIS ROJAS MD DATE OF OPERATION: 05/26/2017 PROCEDURES: 1. PTCA stent LAD. 2. Intravascular ultrasound of the LAD. 3. Left heart catheterization. 4. Selective coronary angiography. 5. Left ventriculogram. INDICATION: Angina and coronary artery disease. PROCEDURE IN DETAIL: After informed consent was obtained and after detailed explanation of risks, benefits as well as alternative therapies, the patient elected to proceed with angiogram and angioplasty. The right radial area was prepped and draped in normal sterile fashion. The right radial artery was cannulated via modified Seldinger technique with placement of 6-Indian sheath. All catheters exchanged through this sheath. FINDINGS: The left ventriculogram was performed in standard 30-degree SCHULTE view, reveals good cardiac wall motion throughout all segments. Overall ejection fraction estimated at 60%. SELECTIVE CORONARY ANGIOGRAPHY: 1. Left main showed no significant angiographic disease. 2. Left anterior descending has a previously placed stent. There is 77% stenosis after the previously placed stent, confirmed by intravascular ultrasound. 3. Left circumflex has moderate irregularities, but no flow-limiting stenosis. 4. Right coronary artery has 90% stenosis in the distal aspect of the PDA. PTCA STENT OF THE LAD: The stent used was a 3.5 x 22 mm [place]. Result was 0% residual stenosis. OVERALL IMPRESSION: Successful percutaneous transluminal coronary angioplasty stent of the left anterior descending going from 75% to 80% initial stenosis to 0% residual stenosis. PLAN: PTCA stent of the RCA in the near future. TRANSINT:[id number] Voice Confirmation ID: [id number] DOCUMENT ID: [id number] AMARILIS ROJAS MD at 1056 CC: [id number] DICTATION DATE: 05/26/17 1022 FISHERY BIOLOGIST: 05/26/17 1146 [facility] CLI 05/26/[address] [id number]
--- NOTE | ~2017-05-26 | HEMODYNAMI ---
PATIENT:STEPH TERRELL MEDICAL RECORD: [id number] : 57 LOCATION:D.CAT ADMISSION DATE: 05/26/17 Generatedon:05/26/201710:25 Patient name: STEPH TERRELL Patient #: [id number] : 1955 Date of study: 05/26/2017 Page: Of Hemodynamic Procedure Report Patient Data Patient Demographics Procedure consent was obtained First Name: STEPH Gender: Male Last Name: NIDHI : 1955 [facility] Initial: NAE Age: 62 year(s) Patient #: [id number] Race: SSN: [id number] Additional ID: [id number] Contact details Address: [address] [place] [address] [address] State: [place]: [place] Zip code: [address] Past Medical History Allergies Allergen Reaction Date Comments Reported Other allergy 07/17/2016 Lipitor Other allergy 07/20/2016 [facility] Admission Admission Data Admission Date: 05/26/2017 Admission Time: 7:39 Arrival Date: 05/26/2017 Arrival Time: 10:00 Admit Source: Other Insurance Payor: Private health insurance Height (in.): 71 BSA: 2.53 (m2) Height (cm.): 180.34 BMI: 42.96 (kg/m2) Weight (lbs.): 308 Weight (kg.): 139.71 Lab Results Lab Result Date: 05/26/2017 Lab Result Time: 0:00 Biochemistry Name Units Result Min Max BUN mg/dl 24 --(----)-* 7 18 Creatinine mg/dl 1.4 --(----)*- 0.6 1.3 CBC Name Units Result Min Max Hemoglobin g/dl 14 --(*---)-- 13.5 17.5 Procedure Procedure Types Cath Procedure Diagnostic Procedure [facility] w/Coronaries FFR/IVUS Intra-Coronary IVUS Initial Sedation Charges Moderate Sedation up to 15 minutes PCI Procedure Coronary Stent Coronary Stent Initial Procedure Description Procedure Date Procedure Date: 05/26/2017 Procedure Start Time: 10:04 Procedure End Time: 10:22 Procedure Staff Name Function Frank Ralph MD Performing Physician Radha Chaparro RT Monitor Crispin Valladares RT Scrub Bartolome Crow RN Nurse Procedure Data Cath Procedure Fluoroscopy Diagnostic fluoroscopy Total fluoroscopy Time: 4.4 time: 4.4 min min Diagnostic fluoroscopy Total fluoroscopy dose: dose: 1624 mGy 1624 mGy Contrast Material Contrast Material Type Amount (ml) Isovue 300 85 Entry Location Entry Primary Successful Side Size Upsize Upsize Entry Closure [place] ccessful Closure Location (Fr) 1 (Fr) 2 (Fr) Remarks Device Remarks Radial Right 6 Fr Mechanical artery Short Compression Estimated blood loss: 5 ml Diagnostic catheters Device Type Used For End Catheter Placement DIAGNOSTIC [place] 110cm 5 Multi-vessel Fr catheter ([id number]) Angiography Procedure Complications No complications Procedure Medications Medication Administration Route Dosage 0.9% NaCl I.V. 100 ml/hr Oxygen NC 2 l/min Heparin Flush Bag added to field 2 bags (1000units/500ml NS) Lidocaine 2% added to field 20 Radial Cocktail added to field 1 syringe (Verapomil 2mg/Nitro 400mcg/Heparin 1500units) Versed I.V. 1 mg Fentanyl I.V. 50 mcg Fentanyl I.V. 50 mcg Versed I.V. 1 mg Radial Cocktail I.A. 1 syringe (Verapomil 2mg/Nitro 400mcg/Heparin 1500units) Fentanyl I.V. 50 mcg Heparin Bolus I.V. 4000 units Hemodynamics Rest BSA: 2.53 (m2) HGB: 14 (g/dl) O2 Consumption: Estimated: 280.12 (ml/min) O2 Cons umption indexed: Estimated:110.72 (ml/min/m) Heart Rate: 53 (bpm) Pressure Samples Time Site Value (mmHg) Purpose Heart Use Rate(bpm) 10:08 LV 74/31,40 Snapshot 62 Snapshots Pre Cath Intra NCS Post Cath Vital Signs Time Heart Resp SPO2 etCO2 NIBP (mmHg) Rhythm Pain Sedation Rate (ipm) (%) (mmHg) Status Level (bpm) 9:46:03 52 16 100 29.8 148/84(100) NSR 0 (11) 10(A) , No pain 9:50:31 49 19 98 23.1 133/78(101) NSR 0 (11) 10(A) , No pain 9:54:55 54 19 98 0 124/73(92) NSR 0 (11) 10(A) , No pain 9:59:24 52 10 100 46.3 125/73(93) NSR 0 (11) 10(A) , No pain 10:03:54 52 19 98 37.3 113/68(84) NSR 0 (11) 10(A) , No pain 10:08:22 58 19 99 46.2 117/61(93) NSR 0 (11) 9(A) , No pain 10:12:49 61 17 95 32.8 101/60(93) NSR 0 (11) 9(A) , No pain 10:17:13 58 16 94 43.3 111/53(69) NSR 0 (11) 9(A) , No pain 10:21:33 53 6 97 39.6 105/73(99) NSR 0 (11) 9(A) , No pain Medications Time Medication Route Dose Verified Delivered Reason Note s Effectiveness by by 9:43:56 0.9% NaCl I.V. 100 Bartolome Bartolome Per physician ml/hr Mignon Crow RN RN 9:44:06 Oxygen NC 2 l/min Bartolome Bartolome Per physician Mignon Crow RN RN 9:44:18 Heparin Flush added 2 bags Bartolome Bartolome used for Bag to Lorigan Lorigan procedure (1000units/500ml field GARCIA RN NS) 9:44:44 Lidocaine 2% added 20ml Bartolome Bartolome for local to vial Lorigan Lorigan anesthetic field GARCIA RN 9:49:41 Radial Cocktail added 1 Bartolome Bartolome used for (Verapomil to syringe Lorigan Lorigan procedure 2mg/Nitro field GARCIA RN 400mcg/Heparin 1500units) 9:57:38 Versed I.V. 1 mg Bartolome Bartolome for sedation Mignon Crow RN, RN 9:57:48 Fentanyl I.V. 50 mcg Bartolome Bartolome for sedation Mignon Crow RN RN 10:04:31 Fentanyl I.V. 50 mcg Bartolome Bartolome for sedation Mignon Crow RN RN 10:04:40 Versed I.V. 1 mg Bartolome Bartolome for sedation Mignon Crow RN, RN 10:06:43 Radial Cocktail I.A. 1 Bartolome Marie for (Verapomil syringe Mignon Ralph MD vasodilation 2mg/Nitro RN 400mcg/Heparin 1500units) 10:07:43 Fentanyl I.V. 50 mcg Bartolome Mancuso for sedation Mignon Crow RN RN 10:12:39 Heparin Bolus I.V. 4000 Bartolome Mancuso for units Mignon Crow anticoagulation RN lap layer Log Time Note 9:20:15 Crispin Valladares RT(R) sent for patient. Start room use. 9:28:38 Informed consent obtained and on chart 9:29:03 Diagnostic Cath Status : Elective 9:29:09 Admit Source: Other 9::12 Arrival Date: 05/26/2017 10:00:00 AM 9:29:20 Insurance Payor : Private health insurance 9:29:44 Patient Height : 71 inches 9:29:49 Patient Weight : 308 lbs 9:31:09 Lab Result : BUN 24 mg/dl 9:31: Lab Result : Creatinine 1.4 mg/dl 9:31: Lab Result : Hemoglobin 14 g/dl 9:31:20 Time tracking: Regular hours 9:31:25 Plan of Care:Hemodynamics will remain stable., Cardiac rhythm will remain stable., Comfort level will be maintained., Respiratory function will remain adequate., Patient/ family verbilizes understanding of procedure., Procedure tolerated without complication., Recovers from procedure without complications.. 9:35:05 Patient received from Pre/Post Procedure Room to [facility] 2 Alert and oriented. Tansferred to table in Supine position. 9:35:05 Warm blankets applied, and leni hugger turned on for patient comfort. 9:35:06 Correct patient and procedure confirmed by team. 9:35:07 ECG and BP/O2 sat monitors applied to patient. 9:43:56 0.9% NaCl 100 ml/hr I.V. was administered by Bartolome Crow RN; Per physician; 9:44:06 Oxygen 2 l/min NC was administered by Bartolome Crow RN; Per physician; 9:44:18 Heparin Flush Bag (1000units/500ml NS) 2 bags added to field was administered by Bartolome Crow RN; used for procedure; :44:23 Vital chart was started 9:44:44 Lidocaine 2% 20ml vial added to field was administered by Bartolome Crow RN; for local anesthetic; 9:49:41 Radial Cocktail (Verapomil 2mg/Nitro 400mcg/Heparin 1500units) 1 syringe added to field was administered by Bartolome Crow RN; used for procedure; 9:50:47 Baseline sample Acquired. 9:50:51 Rhythm: sinus rhythm 9:50:53 Full Disclosure recording started 9:50:59 H&P Date Dictated: 05/26/2017 Within 30 days and on chart., H&P Addendum completed by physician on day of procedure. (MUST COMPLETE FOR ALL OUTPATIENTS). 9:51:01 Pre-procedure instructions explained to patient. 9:51:01 Pre-op teaching completed and patient verbalized understanding. 9:51:03 Family in waiting room. 9:51:18 Patient NPO since Midnight. 9:51:36 Is the patient allergic to Iodine/contrast media? No. 9:51:37 Was the patient premedicated? No 9:53:19 Is patient on blood thinner?Yes 9:53:21 ACC The patient was administered the following blood thiners within the last 24 hours: ACCPlavix 9:53:23 Patient diabetic? No. 9:53:26 Previous problem with sedation/anesthesia? No ? 9:53:28 Snore? Yes 9:53:29 Sleep apnea? No 9:53:29 Deviated septum? No 9:53:30 Opens mouth fully? Yes 9:53:31 Sticks out tongue? Yes 9:53:32 Airway obstruction? No ? 9:53:35 Dentures? No ? 9:53:41 Pre procedure: right dorsailis pedis pulse 2+ Normal; easily identifiable; not easily obliterated 9:53:44 Pre procedure: left dorsailis pedis pulse 2+ Normal; easily identifiable; not easily obliterated 9:53:47 Patient pain scale 0/10 ?. 9:53:54 IV patent on arrival in left forearm with 0.9% NaCl at O. 9:53:57 Lab results completed and on chart. 9:54:08 Right Radial & Right Groin area was prepped with chlora-prep and draped in sterile fashion 9:54:09 Alarms reviewed by RJarrett NJarrett 9:54:10 Sharps counted by scrub and verified by RFran 9:56:12 Physician arrived 9:56:13 --------ALL STOP TIME OUT------ 9:56:13 Final Timeout: patient, procedure, and site verified with staff and physician. All members of the team are in agreement. 9:56:16 Right Radial & Right Groin site verified by team. 9:56:26 Physical assessment completed. ASA score P 2 - A patient with mild systemic disease as per Frank Ralph MD. 9:56:30 Sedation plan: IV Moderate Sedation Medication:Versed, Fentanyl 9:56:51 Use device set Radial Dx or PCI 9:56:52 ACIST Syringe (15636) opened to sterile field. 9:56:52 Medline Cath Pack ([id number]) opened to sterile field. 9:56:53 Bag Decanter (2002S) opened to sterile field. 9:56:54 DIAGNOSTIC WIRE .035 260cm J wire (976091) opened to sterile field. 9:56:54 ACIST Hand Control (68553) opened to sterile field. 9:56:55 ACIST Manifold (34374) opened to sterile field. 9:56:55 Tegaderm 4 x 4 (1626W) opened to sterile field. 9:56:56 MBrace Wrist Support ([id number]) opened to sterile field. 9:57:19 SHEATH 6Fr Prelude Radial ([id number]) opened to sterile field. 9:57:38 Versed 1 mg I.V. was administered by Bartolome Crow RN; for sedation; 9:57:48 Fentanyl 50 mcg I.V. was administered by Bartolome Crow RN; for sedation; 10:04:31 Fentanyl 50 mcg I.V. was administered by Bartolome Crow RN; for sedation; 10:04:40 Versed 1 mg I.V. was administered by Bartolome Crow RN; for sedation; 10:04:40 Procedure started. 10:04:58 Local anesthetic to right radial artery with Lidocaine 2% by Frank Ralph MD.INITIAL ACCESS ONLY 10:05:08 A 6 Fr Short sheath was inserted into the Right Radial artery 10:06:43 Radial Cocktail (Verapomil 2mg/Nitro 400mcg/Heparin 1500units) 1 syringe I.A. was administered by Frank Ralph MD; for vasodilation; 10:06:55 A DIAGNOSTIC [place] 110cm 5 Fr catheter (396508) was advanced over the wire and used for Multi-vessel Angiography. 10:07:43 Fentanyl 50 mcg I.V. was administered by Bartolome Crow RN; for sedation; 10:08:12 LV hemodynamics recorded. 10:08:13 LV gram done using SCHULTE 10:08:16 Injector settings: Ml/sec: 5, Volume: 15, 10:08:36 EF : 60 % 10:08:45 Catheter removed. 10:08:49 LCA angiography performed. 10:08:54 Injector settings: Ml/sec: 3, Volume: 6, 10:09:52 RCA angiography performed. 10:09:54 Injector settings: Ml/sec: 3, Volume: 6, 10:10:27 Catheter removed. 10:10:28 Proceeding to intervention. 10:11:38 INFLATOR Merit BasixCompak (AG4041) opened to sterile field. 10:11:48 GUIDE 6FR XBLAD 3.5 catheter (57780590) opened to sterile field. 10:11:49 [place] Eagleye IVUS Catheter (15786W) opened to sterile field. 10:11:54 CHOICE PT Extra Support 182cm wire ([id number]) opened to sterile field. 10:12:27 6 Fr xblad 3.5 guide catheter was inserted over the wire 10:12:33 choice pt wire advanced. 10:12:39 Heparin Bolus 4000 units I.V. was administered by Bartolome Crow RN; for anticoagulation; 10:12:48 Wire advanced across lesion. 10:13:43 IVUS catheter advanced over wire. 10:13:44 IVUS pass to LAD lesion performed. 10:15:30 IVUS catheter removed over wire. 10:17:32 Inflation Number: 1 A PHILIP RX 3.5 x 22 stent ([id number]) was prepped and advanced across the Prox LAD. The stent was deployed at 19 KARLA for 0:10 (min:sec). 10:18:26 Stent catheter was removed intact over wire. 10:18:27 Wire removed. 10:18:27 Guide catheter removed. 10:18:40 TR BAND Large ([id number]) opened to sterile field. 10:19:45 Sheath removed intact; hemostasis achieved with Mechanical Compression to the Right Radial artery. 10:19:46 Procedure ended.(Physican Out) 10:21:11 Fluoroscopy time 04.40 minutes. 10::16 Flurop Dose total: 1624 10::16 Fluoroscopy dose: 1624 mGy 10::19 Contrast amount:Isovue 300 85ml. 10:21:21 Sharps counted by scrub and verified by R.N. 10:21:22 Insertion/operative site no bleeding no hematoma. 10:21:35 Post right radial artery:stable 10:21:42 TR band inflated with 10cc of air. 10:21:44 Post Procedure Pulses reassessed and unchanged 10::46 Post procedure rhythm: unchanged. 10:21:49 Estimated blood loss: 5 ml 10:21:50 Post procedure instruction explained to patient.Patient verbalizes understanding. 10:21:51 Patient needs reinforcement of post procedure teaching. 10:22:09 Procedure type changed to Cath procedure, Diagnostic procedure, LHC, LHC w/Coronaries, FFR/IVUS, Intra-Coronary IVUS Initial, Sedation Charges, Moderate Sedation up to 15 minutes, PCI procedure, Coronary Stent, Coronary Stent Initial 10:22:10 Procedure and supply charges have been captured, reviewed, submitted and are correct. 10:22:14 Procedure Complication : No complications 10:22:16 Vital chart was stopped 10:22:16 See physician's report for complete and final results. 10:22:19 Report given to Pre/Post Procedure Room. 10:22:21 Patient transfered to Pre/Post Procedure Room with Stretcher. 10:22:23 Procedure ended. 10:22:23 Full Disclosure recording stopped 10:22:29 ACC-PCI Only Patient was given prescriptions, or instructed by Frank Ralph MD to start/continue the following medications upon discharge: Plavix 10:22:31 End room use (Document Last) Intervention Summary Intervention Notes Time ActionType Lesion and Equipment Used Action# Pressure Duration Attributes 10:17:32 [address] stent Prox LAD PHILIP RX 3.5 x 1 19 00:10 22 stent ([id number]) Device Usage Item Name Manufacture Quantity Catalog Number Hospital Part Current Minimal Lot# / Charge Number Stock Stock Serial# Code ACIST Syringe Acist 1 82203 412661 408140 764384 20 (99279) [employer] Inc Medline Cath Cardinal 1 [id number] 968529 09823 674563 5 Pack Health ([id number]) Bag Decanter Microtek 1 2001S 975106 61901 596580 5 (2001S) Medical Inc. DIAGNOSTIC WIRE St Sincere 1 835725 734202 796205 879635 30 .035 260cm J wire (688445) ACIST Hand Acist 1 05107 255766 005131 919277 5 Control (69514) [employer] Inc ACIST Manifold Acist 1 22810 180362 680114 941305 5 (25934) [employer] Systems Inc Tegaderm 4 x 4 3M 1 1626W 528898 650603 459494 5 (1626W) MBrace Wrist Advanced 1 140-0250-00 085295 42981 967075 5 Support Vascular ([id number]) Dynamics SHEATH 6Fr Merit 1 [id number] 038128 100647 148231 5 Prelude Radial Medical ([id number]) DIAGNOSTIC Terumo 1 405013 563756 618111 603769 5 [place] 110cm 5 Fr catheter (595725) INFLATOR Merit Merit 1 IF7071 203469 175694 821584 15 CodexisgaArgus (JH2520) GUIDE 6FR XBLAD Cardinal 1 [id number] 166801 288724 616191 10 3.5 catheter Health (14687458) [place] 1 35455R 863683 484299 869450 8 [place] Eagleye IVUS Catheter (76309W) CHOICE PT Extra [place] 1 [id number] 674644 645752 471988 5 Support 182cm Scientific wire ([id number]) PHILIP RX 3.5 x Medtronic 1 [id number] 832709 4855186 073627 5 [id number] 22 stent ([id number]) TR BAND Large Terumo 1 [id number] 328686 112781 049975 40 ([id number]) Signature Audit [place] Stage Time Signature Unsigned Intra-Procedure 05/26/2017 Radha Chaparro 10:24:57 AM RT(R) Signatures Monitor : Radha Chaparro RT Signature : Date : Time : [address] [address]
[2017-05-26] MEDS ORDERED: FLINTSTONE1 TAB.CHEW PO (07:51)
[2017-05-26 07:54] VITALS: BP 176/70; Ht 180.3 cm; Wt 138.6 kg
[2017-05-26 08:24] LABS: BASOPHILS 0.5 % (0-2); EOSINOPHILS 2.8 % (0-7); HEMATOCRIT 42.8 % (42.0-54.0); IMMATURE GRANULOCYTES 0.2 % (0-5); LYMPHOCYTES 23.8 % (15-50); MCH 29.9 pg (26.0-34.0); MCHC 32.7 g/dL (31.0-37.0); MCV 91.3 fL (80.0-100.0); MONOCYTES 6.9 % (2-11); NEUTROPHILS 65.8 % (40-80); PLATELET COUNT 153 10x3/uL (130-400); RBC 4.69 10x6/uL (4.20-6.10); RDW 14.4 % (11.5-14.5); WBC 6.1 10x3/uL (4.8-10.8)
[2017-05-26 08:32] LABS: ANION GAP 8.8 mmol/L (8-16); CALCIUM 8.2 mg/dL (8.5-10.1); CARBON DIOXIDE 28.4 mmol/L (21.0-32.0); CREATININE - SERUM 1.4 mg/dL (0.6-1.3); POTASSIUM - SERUM 4.2 mmol/L (3.5-5.1)
== END 2017-05-26 15:40 | disposition home or self-care (01) ==
LOC: D.CATH 07:39
PROVIDERS: Internal Medicine Interventional Cardiology
DX: I25.119 Atherosclerotic heart disease of native coronary artery with unspecified angina pectoris (principal); Z01.812 Encounter for preprocedural laboratory examination

== ENCOUNTER → 2017-05-28 07:31 | Outpatient (CLI) | payer BC ==
[~2017-05-28] VITALS: Ht 180.3 cm; Wt 140.0 kg
--- NOTE | ~2017-05-28 | OP ---
PATIENT NAME: STEPH TERRELL MEDICAL RECORD: [id number] :57 LOCATION:D.CAT ADMISSION DATE: SURGEON: AMARILIS ROJAS MD DATE OF OPERATION: 05/28/2017 PROCEDURES: 1. PTCA and stent of RCA. 2. Selective coronary angiography. INDICATION: Angina and coronary artery disease. PROCEDURE IN DETAIL: After informed consent was obtained and after a detailed explanation of the risks, benefits as well as alternative therapies, the patient elected to proceed with angiogram and angioplasty. The right radial area is prepped and draped in normal sterile fashion. The right radial artery was cannulated via modified Seldinger technique with placement of 6-Lithuanian sheath. All catheters exchanged through this sheath. FINDINGS: The right coronary has 90% stenosis distally. This was addressed with a 2.25 x 18 mm [place]. Result was 0% residual stenosis. OVERALL IMPRESSION: Successful PTCA and stent of the right coronary going from 90% initial stenosis to 0% residual. TRANSINT:[id number] Voice Confirmation ID: [id number] DOCUMENT ID: [id number] AMARILIS ROJAS MD at 1056 CC: [id number] DICTATION DATE: 05/28/17 0935 INTERNET MARKETING CONSULTANT: 05/28/17 1251 DEP CLI 05/28/17 [place] [id number] [place] [address]
--- NOTE | ~2017-05-28 | HEMODYNAMI ---
PATIENT:STEPH TERRELL MEDICAL RECORD: [id number] : 57 LOCATION:D.CAT ADMISSION DATE: 05/28/17 Generatedon:05/28/20179:42 Patient name: STEPH TERRELL Patient #: [id number] : 1955 Date of study: 05/28/2017 Page: Of Hemodynamic Procedure Report Patient Data Patient Demographics Procedure consent was obtained First Name: STEPH Gender: Male Last Name: NIDHI : 1955 [facility] Initial: ETHAN Age: 62 year(s) Patient #: [id number] Race: SSN: [id number] Additional ID: [id number] Contact details Address: [address] [place] [address] [address] State: [place] City: [place] Zip code: [address] Past Medical History Allergies Allergen Reaction Date Comments Reported Other allergy 07/17/2016 Lipitor Other allergy 07/20/2016 atovvastatin Admission Admission Data Admission Date: 05/28/2017 Admission Time: 7:31 Admit Source: Other Height (in.): 61 BSA: 2.27 (m2) Height (cm.): 154.94 BMI: 58.32 (kg/m2) Weight (lbs.): 308.65 Weight (kg.): 140 Lab Results Lab Result Date: 05/26/2017 Lab Result Time: 0:00 Biochemistry Name Units Result Min Max BUN mg/dl 24 --(----)-* 7 18 Creatinine mg/dl 1.4 --(----)*- 0.6 1.3 CBC Name Units Result Min Max Hemoglobin g/dl 14 --(*---)-- 13.5 17.5 Procedure Procedure Types Cath Procedure Diagnostic Procedure Sedation Charges Moderate Sedation up to 15 minutes PCI Procedure Coronary Stent Coronary Stent Initial Procedure Description Procedure Date Procedure Date: 05/28/2017 Procedure Start Time: 9:24 Procedure End Time: 9:41 Procedure Staff Name Function Frank Ralph MD Performing Physician Crispin Valladares RT Monitor Win Martinez RT Scrub Alisha Reilly RN Nurse Procedure Data Cath Procedure Fluoroscopy Diagnostic fluoroscopy Total fluoroscopy Time: 2.9 time: 2.9 min min Diagnostic fluoroscopy Total fluoroscopy dose: 665 dose: 665 mGy mGy Contrast Material Contrast Material Type Amount (ml) Isovue 300 62 Entry Location Entry Primary Successful Side Size Upsize Upsize Entry Closure [place] ccessful Closure Location (Fr) 1 (Fr) 2 (Fr) Remarks Device Remarks Radial Right 6 Fr Mechanical artery Short Compression Estimated blood loss: 10 ml Procedure Complications No complications Procedure Medications Medication Administration Route Dosage Oxygen NC 2 l/min Lidocaine 2% added to field 20 Heparin Flush Bag added to field 2 bags (1000units/500ml NS) 0.9% NaCl I.V. 100 ml/hr Versed I.V. 1 mg Fentanyl I.V. 50 mcg Versed I.V. 1 mg Fentanyl I.V. 50 mcg Versed I.V. 1 mg Fentanyl I.V. 50 mcg Heparin Bolus I.V. 4000 units 0.9% NaCl I.V. bolus 250 ml Hemodynamics Rest BSA: 2.27 (m2) HGB: 14 (g/dl) O2 Consumption: Estimated: 249.38 (ml/min) O2 Cons umption indexed: Estimated:109.86 (ml/min/m) Heart Rate: 50 (bpm) Snapshots Pre Cath Intra NCS Post Cath Vital Signs Time Heart Resp SPO2 etCO2 NIBP (mmHg) Rhythm Pain Sedation Rate (ipm) (%) (mmHg) Status Level (bpm) 9:09:02 53 18 99 39.2 167/85(147) NSR 0 (11) 10(A) , No pain 9:13:28 57 17 96 0 118/64(107) NSR 0 (11) 10(A) , No pain 9:17:43 53 16 97 13.5 104/52(84) NSR 0 (11) 10(A) , No pain 9:21:52 62 18 94 22.6 96/62(89) NSR 0 (11) 9(A) , No pain 9:26:00 62 16 93 31.6 92/64(83) NSR 0 (11) 9(A) , No pain 9:31:15 57 6 93 41.5 78/40(54) NSR 0 (11) 9(A) , No pain 9:34:59 64 6 94 42.2 77/54(66) NSR 0 (11) 9(A) , No pain 9:38:32 58 7 95 40.7 85/49(77) NSR 0 (11) 9(A) , No pain Medications Time Medication Route Dose Verified Delivered Reason Notes Effectiveness by by 9:07:14 Oxygen NC 2 Frank Buffie used for l/min Loree Reilly RN procedure 9:07:21 Lidocaine 2% added 20ml Frank Frank for local to vial Loree Ralph MD anesthetic field 9:07:26 Heparin Flush added 2 Frank Frank used for Bag to bags Loree Ralph MD procedure (1000units/500ml field NS) 9:07:35 0.9% NaCl I.V. 100 Frank Buffie Per physician ml/hr Loree Reilly RN 9:13:23 Versed I.V. 1 mg Frank Buffie for sedation Loree Reilly RN 9:13:29 Fentanyl I.V. 50 Frank Buffie for sedation mcg Loree Reilly RN 9:18:22 Versed I.V. 1 mg Frank Buffie for sedation Loree Reilly RN 9:18:26 Fentanyl I.V. 50 Frank Buffie for sedation mcg Loree Reilly RN 9:23:05 Versed I.V. 1 mg Frank Buffie for sedation Loree Reilly RN 9:23:08 Fentanyl I.V. 50 Frank Buffie for sedation mcg Loree Reilly RN 9:28:18 Heparin Bolus I.V. 4000 Frank Buffie for verifie d units Loree Reilly RN anticoagulation with dr ralph 9:35:27 0.9% NaCl I.V. 250 Frank Buffie Per physician bolus ml Loree Reilly RN Procedure Log Time Note 8:45:33 Crispin Valladares RT(R) sent for patient. Start room use. 8:54:03 Informed consent obtained and on chart 8:54:06 Admit Source: Other 8:54:34 Time tracking: Regular hours 8:54:38 Plan of Care:Hemodynamics will remain stable., Cardiac rhythm will remain stable., Comfort level will be maintained., Respiratory function will remain adequate., Patient/ family verbilizes understanding of procedure., Procedure tolerated without complication., Recovers from procedure without complications.. 9:03:03 Patient received from Pre/Post Procedure Room to CCL 2 Alert and oriented. Tansferred to table in Supine position. 9:03:04 Warm blankets applied, and leni hugger turned on for patient comfort. 9:03:04 Correct patient and procedure confirmed by team. 9:03:05 ECG and BP/O2 sat monitors applied to patient. 9:07:14 Oxygen 2 l/min NC was administered by Alisha Reilly RN; used for procedure; 9:07:21 Lidocaine 2% 20ml vial added to field was administered by Frank Ralph MD; for local anesthetic; 9:07:26 Heparin Flush Bag (1000units/500ml NS) 2 bags added to field was administered by Frank Ralph MD; used for procedure; 9:07:35 0.9% NaCl 100 ml/hr I.V. was administered by Alisha Reilly RN; Per physician; 9:07:38 Vital chart was started 9:09:54 Baseline sample Acquired. 9:09:58 Rhythm: sinus bradycardia 9:09:59 Full Disclosure recording started 9:10:03 H&P Date Dictated: 05/28/2017 New H&P dictated by physician.. 9:10:04 Pre-procedure instructions explained to patient. 9:10:04 Pre-op teaching completed and patient verbalized understanding. 9:10:18 Family in patients room. 9:10:19 Patient NPO since Midnight. 9:10:21 Is the patient allergic to Iodine/contrast media? No. 9:10:26 Is patient on blood thinner?Yes 9:10:29 ACC The patient was administered the following blood thiners within the last 24 hours: ACCPlavix 9:10:37 Patient diabetic? No. 9:10:39 Previous problem with sedation/anesthesia? No ? 9:10:40 Snore? Yes 9:10:42 Sleep apnea? No 9:10:43 Deviated septum? No 9:10:43 Opens mouth fully? Yes 9:10:44 Sticks out tongue? Yes 9:10:46 Airway obstruction? No ? 9:10:49 Dentures? No ? 9:10:51 Pre procedure: right dorsailis pedis pulse 1+ Palpable, but thready & weak; easily obliterated 9:10:53 Modified Ethan's test Ulnar < 7 seconds 9:10:55 Patient pain scale 0/10 ?. 9:10:58 IV patent on arrival in left forearm with 0.9% NaCl at KVO. 9:11:00 Lab results completed and on chart. 9:11:05 Right Radial & Right Groin area was prepped with chlora-prep and draped in sterile fashion 9:11:07 Alarms reviewed by R. N. 9:11:07 Sharps counted by scrub and verified by R.N. 9:12:41 --------ALL STOP TIME OUT------ 9:12:42 Final Timeout: patient, procedure, and site verified with staff and physician. All members of the team are in agreement. 9:12:43 Right Radial & Right Groin site verified by team. 9:12:49 Physical assessment completed. ASA score P 2 - A patient with mild systemic disease as per Frank Ralph MD. 9:12:53 Sedation plan: IV Moderate Sedation Medication:Versed, Fentanyl 9:13:23 Versed 1 mg I.V. was administered by Alisha Reilly RN; for sedation; 9:13:29 Fentanyl 50 mcg I.V. was administered by Alisha Reilly RN; for sedation; 9:16:04 Use device set Radial Dx or PCI 9:16:10 Tegaderm 4 x 4 ([id number]) opened to sterile field. 9:16:11 ACIST Manifold (23159) opened to sterile field. 9:16:11 ACIST Hand Control (60677) opened to sterile field. 9:16:13 ACIST Syringe (29608) opened to sterile field. 9:16:13 Medline Cath Pack ([id number]) opened to sterile field. 9:16:14 Bag Decanter () opened to sterile field. 9:16:16 DIAGNOSTIC WIRE .035 260cm J wire (488664) opened to sterile field. 9:16:23 MBrace Wrist Support ([id number]) opened to sterile field. 9:16:31 Use device set TAUTH PCI 9:16:33 INFLATOR Merit BasixCompak (EV9216) opened to sterile field. 9:17:08 SHEATH 6Fr Prelude Radial ([id number]) opened to sterile field. 9:18:22 Versed 1 mg I.V. was administered by Alisha Reilly RN; for sedation; 9:18:26 Fentanyl 50 mcg I.V. was administered by Alisha Reilly RN; for sedation; 9:23:05 Versed 1 mg I.V. was administered by Alisha Reilly RN; for sedation; 9:23:08 Fentanyl 50 mcg I.V. was administered by Alisha Reilly RN; for sedation; 9::49 GUIDE 6FR HS II catheter ([id number]) opened to sterile field. 9:24:08 Procedure started. 9:24:12 Local anesthetic to right radial artery with Lidocaine 2% by Frank Ralph MD.INITIAL ACCESS ONLY 9:25:37 Patient Weight : 308.65 lbs 9:25:45 Patient Height : 61 inches 9:26:27 A 6 Fr Short sheath was inserted into the Right Radial artery 9:27:14 6 Fr HS 2 guide catheter was inserted over the wire 9:28:04 Study PCI Site: [place] dRCA has 90% stenosis. 9:28:18 Heparin Bolus 4000 units I.V. was administered by Alisha Reilly RN; for anticoagulation; verified with dr ralph 9:29:50 WHISPER 300cm guide wire ([id number]) opened to sterile field. 9:29:55 Whisper wire advanced. 9:30:25 Wire advanced across lesion. 9:30:54 Inflation Number: 1 A PHILIP OTW 2.25 x 18 stent ([id number]) was prepped and advanced across the Dist RCA. The stent was deployed at 13 KARLA for 0:10 (min:sec). 9:31:02 Inflation number: 2 The stent balloon was then re-inflated across the Dist RCA to 17 KARLA for 0:10 (min:sec). 9:32:05 Inflation number: 3 The stent balloon was then re-inflated across the Dist RCA to 21 KARLA for 0:10 (min:sec). 9:33:20 Stent catheter was removed intact over wire. 9:33:21 Wire removed. 9:33:22 Guide catheter removed. 9:33:31 TR BAND Standard ([id number]) opened to sterile field. 9:33:44 Sheath removed intact; hemostasis achieved with Mechanical Compression to the Right Radial artery. 9:33:52 Procedure ended.(Physican Out) 9:34:05 Fluoroscopy time 02.90 minutes. 9:34:13 Fluoroscopy dose: 665 mGy 9:34:13 Flurop Dose total: 665 9:34:19 Contrast amount:Isovue 300 62ml. 9:34:20 Sharps counted by scrub and verified by R.N. 9:34:23 TR band inflated with 10cc of air. 9:34:24 Insertion/operative site no bleeding no hematoma. 9:34:26 Post Procedure Pulses reassessed and unchanged 9:34:28 Post-procedure physical assessment completed. ASA score P 2 - A patient with mild systemic disease as per Frank Ralph MD. 9:34:35 Post procedure rhythm: unchanged. 9:35:27 0.9% NaCl 250 ml I.V. bolus was administered by Alisha Reilly RN; Per physician; 9:35:48 Estimated blood loss: 10 ml 9:35:49 Post procedure instruction explained to patient.Patient verbalizes understanding. 9:35:49 Patient needs reinforcement of post procedure teaching. 9:36:06 Procedure Complication : No complications 9:38:01 Procedure type changed to Cath procedure, Diagnostic procedure, Sedation Charges, Moderate Sedation up to 15 minutes, PCI procedure, Coronary Stent, Coronary Stent Initial 9:40:52 Vital chart was stopped 9:40:52 See physician's report for complete and final results. 9:40:54 Report given to Pre/Post Procedure Room. 9:41:02 Patient transfered to Pre/Post Procedure Room with Stretcher. 9:41:04 Procedure ended. 9:41:04 Full Disclosure recording stopped 9:41:08 End room use (Document Last) Intervention Summary Intervention Notes Time ActionType Lesion and Equipment Action# Pressure Duration Attributes Used 9:30:54 Place stent Dist RCA PHILIP OTW 2.25 1 13 00:10 x 18 stent ([id number]) 9:31:02 Reinflate Dist RCA PHILIP OTW 2.25 2 17 00:10 stent x 18 stent balloon ([id number]) 9:32:05 Reinflate Dist RCA PHILIP OTW 2.25 3 21 00:10 stent x 18 stent balloon ([id number]) Device Usage Item Name Manufacture Quantity Catalog Number Hospital Part Current M inimal Lot# / Charge Number Stock Stock Serial# Code Tegaderm 4 x 4 3M 1 [id number] [id number] [id number] 5 ([id number]) ACIST Manifold Acist 1 68266 184054 716625 143159 5 (92786) [employer] ACIST Hand Acist 1 27321 132952 054942 090727 5 Control (35034) [employer] Inc ACIST Syringe Acist 1 08410 386546 460668 399214 2 0 (57998) [employer] Systems Inc Medline Cath Cardinal 1 [id number] 316400 31553 303917 5 Pack Health ([id number]) Bag Decanter Microtek 1 2002S 701351 30011 003081 5 (2001S) Medical Inc. DIAGNOSTIC WIRE St Sincere 1 795201 023970 556993 558983 3 0 .035 260cm J wire (350890) MBrace Wrist Advanced 1 140-0250-00 658958 68649 523487 5 Support Vascular ([id number]) Dynamics INFLATOR Merit Merit 1 GG2289 097498 120667 912230 1 5 Node Management Medical (FG5900) SHEATH 6Fr Merit 1 [id number] 672536 429419 643617 5 Prelude Radial Medical ([id number]) GUIDE 6FR HS II Medtronic 1 [id number] 350858 10278 496260 1 catheter (TA4KQEZ) WHISPER 300cm Munson 1 [id number] 332695 870727 161692 5 guide wire Vascular ([id number]) PHILIP OTW 2.25 x Medtronic 1 [id number] 879084 38278 367695 5 [id number] 18 stent ([id number]) TR BAND Terumo 1 [id number] 917302 101235 815395 4 0 Standard ([id number]) Signature Audit [place] Stage Time Signature Unsigned Intra-Procedure 05/28/2017 Crispin Valladares 9:42:00 AM RT(R) Signatures Monitor : Crispin Valladares RT Signature : Date : Time : [facility] [address] [place] [address]
--- NOTE | ~2017-05-28 | HP ---
PATIENT: STEPH TERRELL MEDICAL RECORD: [id number] ACCOUNT: [id number] LOCATION:HERI : 57 ADMISSION DATE: 05/28/17 HISTORY AND PHYSICAL EXAMINATION DIAGNOSES: 1. Angina. 2. Coronary artery disease. 3. Recent percutaneous transluminal coronary angioplasty stent to left anterior descending with concomitant disease RCA. HISTORY OF PRESENT ILLNESS: This is a gentleman who presents with anginal symptomatology, found to have 2-vessel disease to the LAD and RCA, underwent successful PTCA stent of the LAD. He is now brought back for PTCA stent of the RCA. PHYSICAL EXAMINATION: GENERAL APPEARANCE: Well-nourished, well-developed, appears stated age. Level of distress, comfortable. PSYCHIATRIC: Mental status, alert, normal affect. Orientation, oriented to time, place and person. EYES: Lids and conjunctiva, noninjected. No discharge, no pallor. ENT: Lips, teeth, gums, normal dentition. Oropharynx, no cyanosis, no pallor. NECK: Carotid arteries, bilateral normal upstroke, no bruits, no thrills. JUGULAR VEINS: No jugular venous pressure or distention. CERVICAL LYMPH NODES: Nontender, nonenlarged. THYROID: Not enlarged. Nontender. No nodules. LUNGS: Respiratory effort, unlabored. CHEST: Normal curvature. No thoracic deformity. No chest wall tenderness. Percussion, resonant. Auscultation, clear. No wheezes, no rales, no rhonchi. CARDIOVASCULAR: Precordial exam, nondisplaced. No heaves or pericardial thrills. Rate and rhythm, regular. Heart sounds, normal S1, normal S2. No S3, no gallop, no rub. Systolic murmur, not heard. Diastolic murmur, not heard. EXTREMITIES: No cyanosis, no edema. Peripheral pulses, full and equal in all extremities, except as noted. No bruits appreciated. ABDOMEN: Soft, nondistended. Normal aorta. No bruit. Nontender. No masses. Liver, nontender, no hepatomegaly. Spleen, nontender, no splenomegaly. MUSCULOSKELETAL: No joint tenderness. No joint swelling. No erythema. NEUROLOGICAL: Normal gait, normal strength, normal tone. SKIN: Warm and dry. OVERALL IMPRESSION: Anginal symptomatology with significant disease of the right coronary artery. We will proceed with percutaneous transluminal coronary angioplasty stent of the right coronary artery. 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
[~2017-05-28 07:31] MED LIST changes: +FLINTSTONE1 TAB.CHEW PO
[2017-05-28 07:49] VITALS: BP 143/65; Ht 180.3 cm; Wt 140.0 kg
[2017-05-28 08:54] LABS: BASOPHILS 0.1 % (0-2); EOSINOPHILS 1.8 % (0-7); HEMATOCRIT 46.7 % (42.0-54.0); HEMOGLOBIN 15.2 g/dL (13.5-17.5); IMMATURE GRANULOCYTES 0.3 % (0-5); LYMPHOCYTES 21.9 % (15-50); MCH 29.7 pg (26.0-34.0); MCHC 32.5 g/dL (31.0-37.0); MCV 91.2 fL (80.0-100.0); MEAN PLATELET VOLUME 10.4 fL (7.4-10.4); MONOCYTES 7.8 % (2-11); NEUTROPHILS 68.1 % (40-80); PLATELET COUNT 165 10x3/uL (130-400); RBC 5.12 10x6/uL (4.20-6.10); RDW 14.3 % (11.5-14.5)
[2017-05-28 08:58] LABS: WBC 7.7 10x3/uL (4.8-10.8)
[2017-05-28 09:05] LABS: ANION GAP 13.7 mmol/L (8-16); CALCIUM 8.9 mg/dL (8.5-10.1); CARBON DIOXIDE 26.5 mmol/L (21.0-32.0); CHOL - HDL RATIO 5.9 ratio (2.3-4.9); CREATININE - SERUM 1.4 mg/dL (0.6-1.3); LDL-HDL RATIO 4.4 ratio (1.5-3.5); POTASSIUM - SERUM 4.2 mmol/L (3.5-5.1)
== END | disposition home or self-care (01) ==
LOC: D.CATH 07:31
PROVIDERS: Internal Medicine Interventional Cardiology
DX: I25.119 Atherosclerotic heart disease of native coronary artery with unspecified angina pectoris (principal); Z95.5 Presence of coronary angioplasty implant and graft; Z01.812 Encounter for preprocedural laboratory examination